=== PATIENT | male | born 1935 | race Caucasian/White ===

== ENCOUNTER 2018-08-28 00:33 | Emergency (ER) | payer MEDICARE ==
[2018-08-28 00:56] VITALS: BP 143/75; PULSE 60; RESP 14; TEMP 98.2
--- NOTE | 2018-08-28 01:17 | ED ---
Male Urogenital HPI - General Chief complaint: Urogenital Stated complaint: Urogenital Time Seen by Provider: 08/28/18 00:59 Source: patient, family Mode of arrival: wheelchair Limitations: no limitations - History of Present Illness Initial comments: 83-year-old female patient presents to the emergency department today for evaluation of leaking catheter bag. Patient states he's had the catheter for a few months due to enlarged prostate. States they have tried to remove in the past but has been unsuccessful. States that throughout the day today he has been having leaking from the bottom of the bag causing his pants to become soaked. Patient denies any pain to the abdomen, fever, chills, nausea, vomiting. Denies any difficulty with the insertion site. Denies any other concerns. - Related Data Allergies Allergy/AdvReac Type Severity Reaction Status Date / Time No Known Allergies Allergy Verified 08/28/18 00:55 Review of Systems ROS Statement: Those systems with pertinent positive or pertinent negative responses have been documented in the HPI. ROS Other: All systems not noted in ROS Statement are negative. Past Medical History Past Medical History: Hyperlipidemia, Hypertension, Prostate Disorder History of Any Multi-Drug Resistant Organisms: None Reported Additional Past Surgical History / Comment(s): prostate/bladder Past Psychological History: No Psychological Hx Reported Smoking Status: Never smoker Past Alcohol Use History: None Reported Past Drug Use History: None Reported General Exam Limitations: no limitations General appearance: alert, in no apparent distress, other (Physical well- developed, well-nourished elderly male patient in no acute distress. Vital signs upon presentation are temperature 98.2F, pulse 60, respirations 14, blood pressure 143/75, pulse ox 98% on room air.) Respiratory exam: Present: normal lung sounds bilaterally. Absent: respiratory distress, wheezes, rales, rhonchi, stridor Cardiovascular Exam: Present: regular rate, normal rhythm, normal heart sounds. Absent: systolic murmur, diastolic murmur, rubs, gallop, clicks GI/Abdominal exam: Present: soft, normal bowel sounds. Absent: distended, tenderness, guarding, rebound, rigid Neurological exam: Present: alert, oriented X3, CN II-XII intact Psychiatric exam: Present: normal affect, normal mood Skin exam: Present: warm, dry, intact, normal color. Absent: rash Course Vital Signs 08/28/18 00:49 Temperature 98.2 F Pulse Rate 60 Respiratory 14 Rate Blood Pressure 143/75 O2 Sat by Pulse 98 Oximetry Medical Decision Making - Medical Decision Making 83-year-old male patient presented to the emergency department today for evaluation of leaking catheter bag. Bag was switched out. Patient denied any constitutional symptoms. This did seem to resolve his problem. He is instructed to follow-up with his primary care physician as needed. Instructed to follow-up with his urologist as planned. Return parameters discussed in detail. He verbalizes understanding and agrees with this plan. Disposition Clinical Impression: Problem with Henderson catheter Disposition: HOME SELF-CARE Condition: Good Instructions (If sedation given, give patient instructions): Henderson Catheter Placement and Care (ED) Additional Instructions: Follow-up with urology for further evaluation as planned. Follow-up through primary care physician as needed. Return to the emergency department for any new, worsening, or concerning symptoms. Is patient prescribed a controlled substance at d/c from ED?: No Referrals: Sean Belle MD [Primary Care Provider] - 1-2 days Time of Disposition: 01:16
== END 2018-08-28 01:29 | disposition home or self-care (01) ==
LOC: EC 00:33
DX: T83.038A Leakage of other urinary catheter, initial encounter (principal); Z87.438 Personal history of other diseases of male genital organs
CPT/HCPCS: 99283

== ENCOUNTER 2018-09-07 09:43 | Inpatient (IN) | payer MEDICARE ==
[2018-09-07] MEDS ORDERED: ASPIRIN 81 MG PO STA (10:20)
[2018-09-07] MEDS ORDERED: NITROGLYCERIN OINT 1 INCH/GM PACKET TOPICAL STA (10:20)
--- NOTE | 2018-09-07 10:24 | ED ---
General Adult HPI - General Chief complaint: Chest Pain Stated complaint: chest pain Time Seen by Provider: 09/07/18 10:00 Source: patient, EMS, RN notes reviewed Mode of arrival: EMS Limitations: no limitations - History of Present Illness Initial comments: Patient is a pleasant 83-year-old male presenting to the emergency department with reported chest discomfort. Patient admits to having a bad memory and is a poor historian. At this time patient is unclear why he called the ambulance to come here. Patient does not recall having chest discomfort. Patient denies any chest discomfort at this time. Patient states he does feel somewhat shaky and chilled. Patient denies any cough or difficulty breathing. No abdominal pain. No dysuria. Patient denies any isolated area of weakness. Patient believes his memory problems are chronic. - Related Data Home Medications Medication Instructions Recorded Confirmed Aspirin [Adult Low Dose Aspirin EC] 81 mg PO DAILY 09/07/18 09/07/18 Atorvastatin [Lipitor] 20 mg PO HS 09/07/18 09/07/18 Calcium Carbonate/Vitamin D3 1 tab PO DAILY 09/07/18 09/07/18 [Caltrate 600 Plus D3 Tablet] Cyanocobalamin (Vitamin B-12) 1,000 mcg PO DAILY 09/07/18 09/07/18 [Vitamin B-12] Donepezil HCl [Aricept] 10 mg PO DAILY 09/07/18 09/07/18 Lisinopril [Prinivil] 5 mg PO DAILY 09/07/18 09/07/18 Memantine HCl [Namenda Xr] 28 mg PO DAILY 09/07/18 09/07/18 Multivit-Min/FA/Lycopen/Lutein 1 tab PO DAILY 09/07/18 09/07/18 [Centrum Silver Tablet] risperiDONE 0.5 mg PO HS 09/07/18 09/07/18 Allergies Allergy/AdvReac Type Severity Reaction Status Date / Time No Known Allergies Allergy Verified 09/07/18 10:54 Review of Systems ROS Statement: Those systems with pertinent positive or pertinent negative responses have been documented in the HPI. ROS Other: All systems not noted in ROS Statement are negative. Constitutional: Reports: chills. Denies: fever Eyes: Denies: eye pain ENT: Denies: ear pain Respiratory: Denies: cough, dyspnea Cardiovascular: Denies: chest pain, palpitations Endocrine: Denies: fatigue Gastrointestinal: Denies: abdominal pain Genitourinary: Denies: dysuria Musculoskeletal: Denies: back pain Skin: Denies: rash Neurological: Reports: as per HPI. Denies: headache Past Medical History Past Medical History: Dementia, Hyperlipidemia, Hypertension, Prostate Disorder History of Any Multi-Drug Resistant Organisms: None Reported Past Surgical History: Heart Catheterization With Stent Additional Past Surgical History / Comment(s): prostate/bladder Past Psychological History: No Psychological Hx Reported Smoking Status: Never smoker Past Alcohol Use History: None Reported Past Drug Use History: None Reported General Exam Limitations: no limitations General appearance: alert, in no apparent distress Head exam: Present: atraumatic, normocephalic Eye exam: Present: normal appearance, PERRL ENT exam: Present: normal oropharynx Neck exam: Present: normal inspection. Absent: tenderness Respiratory exam: Present: normal lung sounds bilaterally Cardiovascular Exam: Present: regular rate, normal rhythm Expanded Peripheral pulses: 2+: Radial (R), Radial (L), Posterior Tibialis (R), Posterior Tibialis (L) GI/Abdominal exam: Present: soft. Absent: tenderness Extremities exam: Present: normal inspection. Absent: pedal edema, calf tendern ess Neurological exam: Present: alert Psychiatric exam: Present: normal affect, normal mood Skin exam: Present: normal color Course Vital Signs 09/07/18 09/07/18 09/07/18 09:44 10:10 10:30 Temperature 98.9 F Pulse Rate 76 72 79 Respiratory 18 20 13 Rate Blood Pressure 145/60 145/78 145/78 O2 Sat by Pulse 98 98 96 Oximetry EKG Findings - EKG Comments: EKG Findings:: Normal sinus rhythm at 75. DC 160. QRS 82. QT 368. QTC 410. Normal axis. Normal QRS. No acute ST change. Medical Decision Making - Medical Decision Making Patient reevaluated and resting comfortably in bed, symptom-free. Patient family updated on results and plan. Case was discussed in detail with Dr. De Santiago, who will admit covering for hospital call. - Lab Data Result diagrams: 09/07/18 10:12 09/07/18 10:12 Lab Results 09/07/18 09/07/18 09/07/18 Range/Units 10:12 10:12 10:12 WBC 15.4 H (3.8-10.6) k/uL RBC 4.02 L (4.30-5.90) m/uL Hgb 12.5 L (13.0-17.5) gm/dL Hct 39.2 (39.0-53.0) % MCV 97.5 (80.0-100.0) fL MCH 31.0 (25.0-35.0) pg MCHC 31.8 (31.0-37.0) g/dL RDW 13.4 (11.5-15.5) % Plt Count 189 (150-450) k/uL Neutrophils % 84 % Lymphocytes % 6 % Monocytes % 8 % Eosinophils % 1 % Basophils % 0 % Neutrophils # 12.9 H (1.3-7.7) k/uL Lymphocytes # 1.0 (1.0-4.8) k/uL Monocytes # 1.2 H (0-1.0) k/uL Eosinophils # 0.2 (0-0.7) k/uL Basophils # 0.0 (0-0.2) k/uL PT 10.2 (9.0-12.0) sec INR 0.9 (<1.2) APTT 18.7 L (22.0-30.0) sec Sodium 142 (137-145) mmol/L Potassium 4.7 (3.5-5.1) mmol/L Chloride 108 H (98-107) mmol/L Carbon Dioxide 28 (22-30) mmol/L Anion Gap 6 mmol/L BUN 27 H (9-20) mg/dL Creatinine 1.24 (0.66-1.25) mg/dL Est GFR (CKD-EPI)AfAm 61 (>60 ml/min/1.73 sqM) Est GFR (CKD-EPI)NonAf 53 (>60 ml/min/1.73 sqM) Glucose 113 H (74-99) mg/dL Calcium 9.3 (8.4-10.2) mg/dL Magnesium 2.0 (1.6-2.3) mg/dL Total Bilirubin 0.6 (0.2-1.3) mg/dL AST 30 (17-59) U/L ALT 33 (21-72) U/L Alkaline Phosphatase 141 H (38-126) U/L Creatine Kinase 102 (55-170) U/L Troponin I (0.000-0.034) ng/mL Total Protein 6.0 L (6.3-8.2) g/dL Albumin 3.4 L (3.5-5.0) g/dL 09/07/18 Range/Units 10:12 WBC (3.8-10.6) k/uL RBC (4.30-5.90) m/uL Hgb (13.0-17.5) gm/dL Hct (39.0-53.0) % MCV (80.0-100.0) fL MCH (25.0-35.0) pg MCHC (31.0-37.0) g/dL RDW (11.5-15.5) % Plt Count (150-450) k/uL Neutrophils % % Lymphocytes % % Monocytes % % Eosinophils % % Basophils % % Neutrophils # (1.3-7.7) k/uL Lymphocytes # (1.0-4.8) k/uL Monocytes # (0-1.0) k/uL Eosinophils # (0-0.7) k/uL Basophils # (0-0.2) k/uL PT (9.0-12.0) sec INR (<1.2) APTT (22.0-30.0) sec Sodium (137-145) mmol/L Potassium (3.5-5.1) mmol/L Chloride (98-107) mmol/L Carbon Dioxide (22-30) mmol/L Anion Gap mmol/L BUN (9-20) mg/dL Creatinine (0.66-1.25) mg/dL Est GFR (CKD-EPI)AfAm (>60 ml/min/1.73 sqM) Est GFR (CKD-EPI)NonAf (>60 ml/min/1.73 sqM) Glucose (74-99) mg/dL Calcium (8.4-10.2) mg/dL Magnesium (1.6-2.3) mg/dL Total Bilirubin (0.2-1.3) mg/dL AST (17-59) U/L ALT (21-72) U/L Alkaline Phosphatase (38-126) U/L Creatine Kinase (55-170) U/L Troponin I <0.012 (0.000-0.034) ng/mL Total Protein (6.3-8.2) g/dL Albumin (3.5-5.0) g/dL - Radiology Data Radiology results: image reviewed (Chest x-ray revealed no acute process) Disposition Clinical Impression: Chest pain Disposition: ADMITTED IP TO THIS HOSP Is patient prescribed a controlled substance at d/c from ED?: No Referrals: Sean Belle MD [Primary Care Provider] - 1-2 days Decision Time: 12:01
[2018-09-07 10:54] LABS: Basophils % (A) 0 %; Eosinophils # (A) 0.2 k/uL (0-0.7); Eosinophils % (A) 1 %; HCT 39.2 % (39.0-53.0); HGB 12.5 gm/dL (13.0-17.5); Lymphocytes % (A) 6 %; MCHC 31.8 g/dL (31.0-37.0); MCV 97.5 fL (80.0-100.0); Mean Platelet Volume 8.4; Monocytes # (A) 1.2 k/uL (0-1.0); Monocytes % (A) 8 %; Neutrophils # (A) 12.9 k/uL (1.3-7.7); Neutrophils % (A) 84 %; Platelet Count 189 k/uL (150-450); RBC 4.02 m/uL (4.30-5.90); RDW 13.4 % (11.5-15.5); WBC 15.4 k/uL (3.8-10.6)
[2018-09-07 11:10] LABS: Albumin 3.4 g/dL (3.5-5.0); Calcium 9.3 mg/dL (8.4-10.2); INR 0.9 (<1.2); Potassium 4.7 mmol/L (3.5-5.1); Prothrombin Time 10.2 sec (9.0-12.0); Total Bilirubin 0.6 mg/dL (0.2-1.3)
[2018-09-07 11:17] LABS: Partial Thromboplastin Time 18.7 sec (22.0-30.0)
--- NOTE | 2018-09-07 11:23 | XR ---
EXAMINATION TYPE: XR chest 2V DATE OF EXAM: 09/07/2018 HISTORY: Chest Pain. REFERENCE: NONE. FINDINGS: Heart size upper limits of normal. The lungs are clear. Pleural spaces are clear. IMPRESSION: BORDERLINE CARDIOMEGALY.
[2018-09-07] MEDS ORDERED: NITROGLYCERIN SL TABS 0.4 MG TAB SUBLINGUAL PRN (12:01)
--- NOTE | 2018-09-07 15:18 | CONS ---
CONSULTATION This is an 83-year-old gentleman with a lot of dementia, memory issues, does not communicate. He lives at home with his . Apparently, he moves around the house very slowly, does not like to use a walker. This morning, while he was trying to help her with breakfast, he said he cannot do it and clutched his chest and therefore she brought him to the hospital by calling 911. The patient is not a reliable historian. He has underlying dementia, takes Aricept and Namenda. He denies any chest pain. He came into the emergency room and said he does not know why he is here and absolutely denied chest discomfort. He is also not having any symptoms. He is comfortable and resting. He has history of hypertension, hyperlipidemia, and remote history of stenting. Details are also not available. He sees a brewery pumper in the [facility] and apparently had a stent in 2007. He does not know which vessel. At the time of my evaluation, patient keeps his eyes closed, does not communicate and tells me he is in no distress. The patient's tells me that he looks more comfortable. He was in distress and clutched his chest and complained of chest pain earlier today. PAST MEDICAL HISTORY: 1. CAD with PCI in 2007. 2. Hypertension. 3. Hyperlipidemia. 4. History of dementia. MEDICATIONS: At home include: 1. Aspirin 81 mg daily. 2. Lipitor 20 mg daily. 3. Vitamin D supplement. 4. Vitamin B supplement. 5. Aricept. 6. Namenda. 7. Prinivil 5 mg at bedtime. ALLERGIES: None. REVIEW OF SYSTEMS: Unremarkable other than above-mentioned facts. PHYSICAL EXAMINATION: Blood pressure is 140/70, pulse rate is 70 per minute and regular. HEENT unremarkable. Fundus was not examined by me. Neck is supple. There is no JVD. I do not hear a carotid bruit. Heart exam is S1, S2 heard normally. No significant rub, murmur or gallop. Lungs reveal bilateral diminished air entry. Abdomen is soft. Lower extremities reveal diminished pulses. Central nervous system assessment was not performed, but patient is able to move all 4 extremities. EKG revealed sinus mechanism without any acute changes. This is a really unremarkable EKG with sinus rhythm. LABORATORY DATA: Revealed that initial levels are normal. Troponin is unremarkable. Patient's white count is elevated at 15.4. D-dimer was not done. Troponin is normal. IMPRESSION: 1. Probable chest pain, unclear unable to verify with patient. 2. History of dementia. 3. History of coronary artery disease with prior stenting. 4. Hyperlipidemia. RECOMMENDATIONS: I am recommending that we obtain an EKG and troponin at 6:00 am. Continue current medications. No aggressive intervention is necessary. His troponins are normal and if patient has no recurrence of chest pain, e may be discharged tomorrow. Discussed with the patient and . Thank you very much for the consult. DEANDRE / JAYLON: [id number] /
[2018-09-07] MEDS: METOPROLOL TARTRATE 12.5 MG TAB PO SCH ×2 (15:36→21:26)
[2018-09-07] MEDS: LISINOPRIL 5 MG TAB PO SCH (15:36)
[2018-09-07] MEDS: DONEPEZIL 10 MG TAB PO SCH (15:36)
[2018-09-07] MEDS: MEMANTINE 10 MG TAB PO SCH ×2 (15:36→21:26)
[2018-09-07 15:42] LABS: Appearance,Urine Cloudy (Clear); Bilirubin,Urine Negative (Negative); Blood,Urine Moderate (Negative); Color,Urine Yellow; Glucose,Urine (UA) Negative (Negative); Ketones,Urine Trace (Negative); Leukocyte Esterase,Urine Large (Negative); Mucus,Urine Rare /hpf; Nitrite,Urine Negative (Negative); PH, Urine 5.5 (5.0-8.0); Protein,Urine 1+ (Negative); RBC,Urine 113 /hpf (0-5); Specific Gravity,Urine 1.016 (1.001-1.035); Urobilinogen,Urine <2.0 mg/dL (<2.0); WBC,Urine >182 /hpf (0-5)
[2018-09-07] MEDS ORDERED: ACETAMINOPHEN TAB 325 MG TAB PO PRN (16:06)
--- NOTE | 2018-09-07 17:16 | P.HPIM ---
History of Present Illness H&P Date: 09/07/18 Chief Complaint: Chest pain 83-year-old male with PMH of dementia, hypertension, hyperlipidemia presents to the ED for chest pain. Patient has advanced dementia and is unable to provide much history. Per ED report, patient's chest pain had resolved by the time he got to the ED. Patient is unable to describe his pain in further detail. is at bedside providing majority of the history. reports that the patient was attempting to pour milk this morning when he indicated that he had chest pain. noticed that patient was clenching his chest with his hands. also noticed that the patient appeared weak and was going to collapse to the floor but she was able to catch the patient and allow him to sit down in a chair. Of note, reports that the patient had been rubbing his chest over the last 2-3 weeks. Patient denies any headache, lower extremity edema, nausea, vomiting, cough, chest pain, shortness of breath, changes in urination or bowel habits. Per ED report, patient noted feeling shaky and chills. In the ED, vital signs were stable. CBC showed a leukocytosis of 15.4. CBC showed a hemoglobin of 12.5. Coagulation panel was negative. CMP showed a chloride of 108, BUN of 27 and glucose of 113. Alkaline phosphatase was 141. Troponin was less than 0.012, with EKG showing normal sinus rhythm. Urinalysis showed large leukocyte esterase. Influenza was negative. Chest x-ray shows cardiomegaly. When he hit the observation unit, patient spiked a fever of 101.8 Fahrenheit. Patient is admitted for chest pain, rule out acute coronary syndrome, cardiology is consulted. Patient was incidentally found to have a UTI as well. Review of Systems Pertinent positives and negatives as discussed in HPI, a complete review of systems was performed and all other systems are negative. Past Medical History Past Medical History: Dementia, Hyperlipidemia, Hypertension, Prostate Disorder History of Any Multi-Drug Resistant Organisms: None Reported Past Surgical History: Heart Catheterization With Stent Additional Past Surgical History / Comment(s): prostate/bladder Date of Last Stent Placement:: 06/2007 Past Psychological History: No Psychological Hx Reported Smoking Status: Never smoker Past Alcohol Use History: None Reported Past Drug Use History: None Reported Medications and Allergies Home Medications Medication Instructions Recorded Confirmed Type Aspirin [Adult Low Dose Aspirin EC] 81 mg PO DAILY 09/07/18 09/07/18 History Atorvastatin [Lipitor] 20 mg PO HS 09/07/18 09/07/18 History Calcium Carbonate/Vitamin D3 1 tab PO DAILY 09/07/18 09/07/18 History [Caltrate 600 Plus D3 Tablet] Cyanocobalamin (Vitamin B-12) 1,000 mcg PO DAILY 09/07/18 09/07/18 History [Vitamin B-12] Donepezil HCl [Aricept] 10 mg PO DAILY 09/07/18 09/07/18 History Lisinopril [Prinivil] 5 mg PO DAILY 09/07/18 09/07/18 History Memantine HCl [Namenda Xr] 28 mg PO DAILY 09/07/18 09/07/18 History Multivit-Min/FA/Lycopen/Lutein 1 tab PO DAILY 09/07/18 09/07/18 History [Centrum Silver Tablet] risperiDONE 0.5 mg PO HS 09/07/18 09/07/18 History Allergies Allergy/AdvReac Type Severity Reaction Status Date / Time No Known Allergies Allergy Verified 09/07/18 10:54 Physical Exam Vitals: Vital Signs Temp Pulse Pulse Resp BP BP BP 09/07/18 16:00 88 18 09/07/18 15:45 101.8 F H 88 18 152/73 09/07/18 12:49 98.5 F 88 18 172/68 09/07/18 12:00 80 20 151/72 09/07/18 11:30 73 15 153/73 09/07/18 10:30 79 13 145/78 09/07/18 10:10 72 20 145/78 09/07/18 09:44 98.9 F 76 18 145/60 Pulse Ox 09/07/18 16:00 09/07/18 15:45 94 L 09/07/18 12:49 96 09/07/18 12:00 97 09/07/18 11:30 97 09/07/18 10:30 96 09/07/18 10:10 98 09/07/18 09:44 98 Intake and Output 09/07/18 09/07/18 09/07/18 06:59 14:59 22:59 Intake Total 240 Balance 240 Intake: Oral 240 Other: Voiding Method Indwelling Catheter Indwelling Catheter Weight 81.647 kg General: [non toxic], [no distress], [appears at stated age] Derm: [warm], [dry] Head: [atraumatic], [normocephalic], [symmetric] Eyes: [EOMI], [no lid lag], [anicteric sclera] Mouth: [no lip lesion], [mucus membranes moist] Cardiovascular: [S1S2 reg], [no murmur], [positive DP pulse bilateral], Lungs: [CTA bilateral], [no rhonchi, no rales] , [no accessory muscle use] Abdominal: [soft], [ nontender to palpation], [no guarding], [no appreciable organomegaly] Ext: [no gross muscle atrophy], [no edema], [no contractures] Neuro: [no focal neuro deficits] Psych: [Alert], [oriented], [appropriate affect] Results CBC & Chem 7: 09/07/18 10:12 09/07/18 10:12 Labs: Abnormal Lab Results - Last 24 Hours (Table) 09/07/18 09/07/18 09/07/18 Range/Units 10:12 10:12 10:12 WBC 15.4 H (3.8-10.6) k/uL RBC 4.02 L (4.30-5.90) m/uL Hgb 12.5 L (13.0-17.5) gm/dL Neutrophils # 12.9 H (1.3-7.7) k/uL Monocytes # 1.2 H (0-1.0) k/uL APTT 18.7 L (22.0-30.0) sec Chloride 108 H (98-107) mmol/L BUN 27 H (9-20) mg/dL Glucose 113 H (74-99) mg/dL Alkaline Phosphatase 141 H (38-126) U/L Total Protein 6.0 L (6.3-8.2) g/dL Albumin 3.4 L (3.5-5.0) g/dL Urine Protein (Negative) Urine Ketones (Negative) Urine Blood (Negative) Ur Leukocyte Esterase (Negative) Urine RBC (0-5) /hpf Urine WBC (0-5) /hpf Urine WBC Clumps (None) /hpf Urine Mucus (None) /hpf 09/07/18 Range/Units 14:28 WBC (3.8-10.6) k/uL RBC (4.30-5.90) m/uL Hgb (13.0-17.5) gm/dL Neutrophils # (1.3-7.7) k/uL Monocytes # (0-1.0) k/uL APTT (22.0-30.0) sec Chloride (98-107) mmol/L BUN (9-20) mg/dL Glucose (74-99) mg/dL Alkaline Phosphatase (38-126) U/L Total Protein (6.3-8.2) g/dL Albumin (3.5-5.0) g/dL Urine Protein 1+ H (Negative) Urine Ketones Trace H (Negative) Urine Blood Moderate H (Negative) Ur Leukocyte Esterase Large H (Negative) Urine RBC 113 H (0-5) /hpf Urine WBC >182 H (0-5) /hpf Urine WBC Clumps Rare H (None) /hpf Urine Mucus Rare H (None) /hpf Thrombosis Risk Factor Assmnt - Choose All That Apply Any of the Below Risk Factors Present?: No Other Risk Factors: Yes Each Risk Factor Represents 3 Points: Age 75 years or older Thrombosis Risk Factor Assessment Total Risk Factor Score: 3 Thrombosis Risk Factor Assessment Level: Moderate Risk Assessment and Plan Assessment: Assessment and Plan Fever and leukocytosis likely secondary to UTI Chest pain, rule out acute coronary syndrome Elevated BUN Dementia Hypertension Hyperlipidemia Patient with fever of 101.8 Fahrenheit. Leukocytosis of 15.4. Chest x-ray is negative for pneumonia. Urinalysis shows large leukocyte esterase. Influenza is negative. Plans: Start Rocephin IV for treatment of UTI. Tylenol as needed for fever. Follow blood cultures. Follow urine culture. Troponin less than 0.0122 with EKG showing normal sinus rhythm. Plans: Trend Trop/EKG to rule out ACS. Continue aspirin. Tylenol or Nitrostat as needed for chest pain. Continue beta sharla. Telemetry monitoring. Follow cardiology consultation. BUN 27, creatinine within normal limits. Likely secondary to dehydration. Plans: Avoid nephrotoxins. Start normal saline at 50 mL per hour. Daily BMP. Plans: Continue memantine, risperidone and donepezil. Frequent redirection. Avoid restraints. Window side bed if possible. BP 152/73. Plans: Continue beta sharla. Continue MARISSA inhibitor. Monitor vitals, adjust medications as necessary. Plans: Continue Lipitor. Patient admitted for chest pain, rule out ACS, cardiology consulted. Found to have UTI with fever, started on IV antibiotics. Patient is pending clinical improvement. would like the patient to be full code at this time. , Roc is the decision maker. DVT prophylaxis: [Heparin] Discussed with: [Patient and ] Anticipated discharge: [1-2 days] Anticipated discharge place: [Home] A total of [30] minutes was spent on the care of this complex patient more than 50% of the time was spent in counseling and care coordination.
[2018-09-07] MEDS: SODIUM CHLORIDE 0.9% 1,000 ML IV SCH (17:51)
[2018-09-07] MEDS: NITROGLYCERIN OINT 1 INCH/GM PACKET TOPICAL SCH ×2 (18:46→23:37)
[2018-09-07] MEDS: ATORVASTATIN 20 MG TAB PO SCH (21:26)
[2018-09-07] MEDS: risperiDONE 0.5 MG TAB PO SCH (21:26)
[2018-09-07] MEDS: HEPARIN SODIUM,PORCINE 5,000 UNIT/ML 1 ML VIAL SQ SCH (21:26)
[2018-09-08 03:57] LABS: Cholesterol 96 mg/dL (<200); HDL Cholesterol 43 mg/dL (40-60); LDL Cholesterol,Calculated 45 mg/dL (0-99); Triglycerides 41 mg/dL (<150)
[2018-09-08] MEDS: NITROGLYCERIN OINT 1 INCH/GM PACKET TOPICAL SCH ×2 (06:46→12:26)
[2018-09-08] MEDS ORDERED: ASPIRIN 325 MG TAB PO SCH (09:00)
[2018-09-08] MEDS: HEPARIN SODIUM,PORCINE 5,000 UNIT/ML 1 ML VIAL SQ SCH ×2 (09:07→20:02)
[2018-09-08] MEDS: DONEPEZIL 10 MG TAB PO SCH (09:07)
[2018-09-08] MEDS: ASPIRIN 81 MG PO SCH (09:07)
[2018-09-08] MEDS: METOPROLOL TARTRATE 12.5 MG TAB PO SCH ×2 (09:07→20:02)
[2018-09-08] MEDS: LISINOPRIL 5 MG TAB PO SCH (09:07)
[2018-09-08] MEDS: MEMANTINE 10 MG TAB PO SCH ×2 (09:07→20:02)
--- NOTE | 2018-09-08 12:27 | P.PN ---
Subjective This is a pleasant 83-year-old male past medical history significant for dementia, coronary artery disease, hypertension and dyslipidemia. He is seen and examined resting comfortably in bed in no acute distress. Per the nursing staff there is no complaints of chest discomfort. An acute coronary event has been ruled out. Laboratory data reviewed. Blood pressure 101/62 her a 56 afebrile maintaining oxygen saturation on room air. Currently maintained on aspirin 81 mg daily, atorvastatin 20 mg daily, lisinopril 5 mg daily and Lopr essor 12.5 mg twice a day. GENERAL: Well-appearing, well-nourished and in no acute distress. NECK: Supple without JVD or thyromegaly. LUNGS: Breath sounds clear to auscultation bilaterally. Respiration equal and unlabored. No wheezes, rales or rhonchi. HEART: Regular rate and rhythm without murmurs, rubs or gallops. S1 and S2 heard. EXTREMITIES: Normal range of motion, no edema. No clubbing or cyanosis. Peripheral pulses intact. ASSESSMENT Chest pain, an acute coronary event has been ruled out. No chest pain has been verbalize coming to the hospital. History of coronary artery disease status post stent placement 2007 Dyslipidemia Hypertension Dementia PLAN Stable from a cardiac perspective. Continue current medical regimen. Nurse Practitioner note has been reviewed, I agree with a documented findings and plan of care. Patient was seen and examined. Objective - Vital Signs Vital signs: Vital Signs Temp 98.3 F 09/08/18 12:00 Pulse 56 L 09/08/18 12:00 Resp 18 09/08/18 12:00 BP 101/62 09/08/18 12:00 Pulse Ox 93 L 09/08/18 12:00 Intake & Output 09/07/18 09/08/18 09/08/18 18:59 06:59 18:59 Intake Total 480 Output Total 425 700 Balance 55 -700 Weight 81.647 kg Intake: Oral 480 Output: Urine 425 700 Other: Voiding Method Indwelling Catheter Indwelling Catheter Indwelling Catheter - Labs CBC & Chem 7: 09/07/18 10:12 09/07/18 10:12 Labs: Abnormal Lab Results - Last 24 Hours (Table) 09/07/18 Range/Units 14:28 Urine Protein 1+ H (Negative) Urine Ketones Trace H (Negative) Urine Blood Moderate H (Negative) Ur Leukocyte Esterase Large H (Negative) Urine RBC 113 H (0-5) /hpf Urine WBC >182 H (0-5) /hpf Urine WBC Clumps Rare H (None) /hpf Urine Mucus Rare H (None) /hpf Microbiology - Last 24 Hours (Table) 09/07/18 14:28 Urine Culture - Preliminary Urine,Catheterized
[2018-09-08 14:30] LABS: Potassium 4.3 mmol/L (3.5-5.1)
[2018-09-08 14:31] LABS: Basophils % (A) 0 %; Eosinophils # (A) 0.2 k/uL (0-0.7); Eosinophils % (A) 2 %; HCT 31.7 % (39.0-53.0); HGB 10.5 gm/dL (13.0-17.5); Lymphocytes # (A) 0.7 k/uL (1.0-4.8); Lymphocytes % (A) 7 %; MCHC 33.1 g/dL (31.0-37.0); MCV 96.5 fL (80.0-100.0); Mean Platelet Volume 9.1; Monocytes # (A) 0.8 k/uL (0-1.0); Monocytes % (A) 7 %; Neutrophils # (A) 8.8 k/uL (1.3-7.7); Neutrophils % (A) 83 %; Platelet Count 140 k/uL (150-450); RBC 3.29 m/uL (4.30-5.90); RDW 13.9 % (11.5-15.5); WBC 10.6 k/uL (3.8-10.6)
--- NOTE | 2018-09-08 14:54 | P.PN ---
Subjective Progress Note Date: 09/08/18 Principal diagnosis: UTI Patient was seen and examined. No acute events overnight. Patient denies any chest pain, shortness of breath or palpitations. He has no symptoms. reports that the patient has been increasingly fatigued over this time and she is concerned about her ability to take care of him at this time. Objective - Vital Signs Vital signs: Vital Signs Temp 98.3 F 09/08/18 12:00 Pulse 56 L 09/08/18 12:00 Resp 18 09/08/18 12:00 BP 101/62 09/08/18 12:00 Pulse Ox 93 L 09/08/18 12:00 Intake & Output 09/07/18 09/08/18 09/08/18 18:59 06:59 18:59 Intake Total 480 Output Total 425 700 Balance 55 -700 Weight 81.647 kg Intake: Oral 480 Output: Urine 425 700 Other: Voiding Method Indwelling Catheter Indwelling Catheter Indwelling Catheter - Exam General: [non toxic], [no distress], [appears at stated age] Derm: [warm], [dry] Head: [atraumatic], [normocephalic], [symmetric] Eyes: [EOMI], [no lid lag], [anicteric sclera] Mouth: [no lip lesion], [mucus membranes moist] Cardiovascular: [S1S2 reg], [no murmur], [positive DP pulse bilateral], Lungs: [CTA bilateral], [no rhonchi, no rales] , [no accessory muscle use] Abdominal: [soft], [ nontender to palpation], [no guarding], [no appreciable organomegaly] Ext: [no gross muscle atrophy], [no edema], [no contractures] Neuro: [no focal neuro deficits] Psych: [Alert], [oriented], [appropriate affect] - Labs CBC & Chem 7: 09/08/18 13:54 09/08/18 13:54 Labs: Abnormal Lab Results - Last 24 Hours (Table) 09/07/18 09/08/18 09/08/18 Range/Units 14:28 13:54 13:54 RBC 3.29 L (4.30-5.90) m/uL Hgb 10.5 L (13.0-17.5) gm/dL Hct 31.7 L (39.0-53.0) % Plt Count 140 L (150-450) k/uL Neutrophils # 8.8 H (1.3-7.7) k/uL Lymphocytes # 0.7 L (1.0-4.8) k/uL Chloride 109 H (98-107) mmol/L BUN 23 H (9-20) mg/dL Glucose 112 H (74-99) mg/dL Calcium 8.0 L (8.4-10.2) mg/dL Urine Protein 1+ H (Negative) Urine Ketones Trace H (Negative) Urine Blood Moderate H (Negative) Ur Leukocyte Esterase Large H (Negative) Urine RBC 113 H (0-5) /hpf Urine WBC >182 H (0-5) /hpf Urine WBC Clumps Rare H (None) /hpf Urine Mucus Rare H (None) /hpf Microbiology - Last 24 Hours (Table) 09/07/18 14:28 Urine Culture - Preliminary Urine,Catheterized Assessment and Plan Assessment: Assessment and Plan Fever and leukocytosis likely secondary to UTI Chest pain, rule out acute coronary syndrome Elevated BUN Dementia Hypertension Hyperlipidemia Patient with fever of 101.8 Fahrenheit, afebrile since this morning. Leukocytosis of 15.4, improved now within normal limits. Chest x-ray is negative for pneumonia. Urinalysis shows large leukocyte esterase. Influenza is negative. Plans: Start Rocephin IV for treatment of UTI. Tylenol as needed for fever. Follow blood cultures. Follow urine culture. Troponin less than 0.0122, 0.025 with EKG showing normal sinus rhythm. Plans: ACS ruled out. Continue aspirin. Tylenol or Nitrostat as needed for chest pain. Continue beta sharla. Telemetry monitoring. Cardiology recommends no further workup. Follow echocardiogram. BUN 27-23, creatinine within normal limits. Likely secondary to dehydration. Plans: Avoid nephrotoxins. Start normal saline at 50 mL per hour. Daily BMP. Plans: Continue memantine, risperidone and donepezil. Frequent redirection. Avoid restraints. Window side bed if possible. BP 101/62. Plans: Continue beta sharla. Continue MARISSA inhibitor. Monitor vitals, adjust medications as necessary. Plans: Continue Lipitor. Patient admitted for chest pain, rule out ACS, cardiology cleared. Found to have UTI with fever, started on IV antibiotics, cultures pending. Follow echocardiogram tomorrow morning. Follow PT consult tomorrow morning. Likely DC tomorrow.
[2018-09-08] MEDS: SODIUM CHLORIDE 0.9% 1,000 ML IV SCH (19:54)
[2018-09-08] MEDS: ATORVASTATIN 20 MG TAB PO SCH (20:02)
[2018-09-08] MEDS: risperiDONE 0.5 MG TAB PO SCH (20:02)
[2018-09-09 07:10] LABS: Glucose,Whole Blood 101 mg/dL (75-99)
--- NOTE | 2018-09-09 10:27 | ECHOF ---
Referral Reason:Ches tpain MEASUREMENTS -------- HEIGHT: 167.6 cm WEIGHT: 81.6 kg BP: 154/75 IVSd: 0.9 cm (0.6 - 1.1) LVIDd: 3.7 cm (3.9 - 5.3) LVPWd: 1.5 cm (0.6 - 1.1) IVSs: 1.4 cm LVIDs: 2.3 cm LVPWs: 1.9 cm Ao Diam: 2.9 cm (2.0 - 3.7) AV Cusp: 1.8 cm (1.5 - 2.6) LA Diam: 2.9 cm (2.7 - 3.8) MV EXCURSION: 15.965 mm (> 18.000) MV EF SLOPE: 66 mm/s (70 - 150) EPSS: 1.8 cm MV E Percy: 0.98 m/s MV DecT: 183 ms MV A Percy: 0.82 m/s MV E/A Ratio: 1.19 AR PHT: 311 ms RAP: 5.00 mmHg RVSP: 10.17 mmHg FINDINGS -------- Sinus rhythm. This was a technically adequate study. The left ventricular size is normal. There is mild concentric left ventricular hypertrophy. Overa ll left ventricular systolic function is normal with, an EF between 55 - 60 %. The RV was not well visualized. The left atrial size is normal. The right atrium was not well visualized. The aortic valve was not well visualized. There is mild aortic regurgitation. The mitral valve was not well visualized. There is trace mitral regurgitation. Trace tricuspid regurgitation present. Right ventricular systolic pressure is normal at < 35 mmHg. The pulmonic valve was not well visualized. There is no pulmonic regurgitation present. The aortic root size is normal. IVC Not well visulized. There is no pericardial effusion. CONCLUSIONS -------- 1. Sinus rhythm. 2. This was a technically adequate study. 3. The left ventricular size is normal. 4. There is mild concentric left ventricular hypertrophy. 5. Overall left ventricular systolic function is normal with, an EF between 55 - 60 %. 6. The RV was not well visualized. 7. The left atrial size is normal. 8. The right atrium was not well visualized. 9. The aortic valve was not well visualized. 10. There is mild aortic regurgitation. 11. There is trace mitral regurgitation. 12. Trace tricuspid regurgitation present. 13. Right ventricular systolic pressure is normal at < 35 mmHg. 14. The pulmonic valve was not well visualized. 15. There is no pulmonic regurgitation present. 16. The aortic root size is normal. 17. IVC Not well visulized. 18. There is no pericardial effusion. MANAGER ENDOSCOPY: Nicole Rivera RDCS
[2018-09-09] MEDS: LISINOPRIL 5 MG TAB PO SCH (11:05)
[2018-09-09] MEDS: MEMANTINE 10 MG TAB PO SCH ×2 (11:05→21:43)
[2018-09-09] MEDS: METOPROLOL TARTRATE 12.5 MG TAB PO SCH ×2 (11:05→21:43)
[2018-09-09] MEDS: HEPARIN SODIUM,PORCINE 5,000 UNIT/ML 1 ML VIAL SQ SCH ×2 (11:05→21:43)
[2018-09-09] MEDS: SODIUM CHLORIDE 0.9% 1,000 ML IV SCH (11:05)
[2018-09-09] MEDS: ASPIRIN 81 MG PO SCH (11:05)
[2018-09-09] MEDS: DONEPEZIL 10 MG TAB PO SCH (11:06)
--- NOTE | 2018-09-09 16:04 | P.PN ---
Subjective Progress Note Date: 09/09/18 Principal diagnosis: UTI Patient was seen and examined. No acute events overnight. believes that the patient has improved somewhat. Patient currently denies any complaints. He denies any chest pain, shortness of breath or palpitations. No nausea or vomiting. No fever or chills. No dysuria. Objective - Vital Signs Vital signs: Vital Signs Temp 98.2 F 09/09/18 12:00 Pulse 60 09/09/18 12:00 Resp 17 09/09/18 12:00 BP 128/66 09/09/18 12:00 Pulse Ox 94 L 09/09/18 12:00 Intake & Output 09/08/18 09/09/18 09/09/18 18:59 06:59 18:59 Output Total 600 1200 525 Balance -600 -1200 -525 Output: Urine 600 1200 525 Other: Voiding Method Indwelling Catheter Indwelling Catheter Indwelling Catheter # Voids 1 - Exam General: [non toxic], [no distress], [appears at stated age] Derm: [warm], [dry] Head: [atraumatic], [normocephalic], [symmetric] Eyes: [EOMI], [no lid lag], [anicteric sclera] Mouth: [no lip lesion], [mucus membranes moist] Cardiovascular: [S1S2 reg], [no murmur], [positive DP pulse bilateral], Lungs: [CTA bilateral], [no rhonchi, no rales] , [no accessory muscle use] Abdominal: [soft], [ nontender to palpation], [no guarding], [no appreciable organomegaly] Ext: [no gross muscle atrophy], [no edema], [no contractures] Neuro: [no focal neuro deficits] Psych: [Alert], [oriented], [appropriate affect] - Labs CBC & Chem 7: 09/08/18 13:54 09/08/18 13:54 Labs: Abnormal Lab Results - Last 24 Hours (Table) 09/09/18 Range/Units 07:08 POC Glucose (mg/dL) 101 H (75-99) mg/dL Microbiology - Last 24 Hours (Table) 09/07/18 14:28 Urine Culture - Preliminary Urine,Catheterized Gram Neg Bacilli Group D Enterococcus 09/07/18 14:27 Blood Culture - Preliminary Blood No Growth after 24 hours Assessment and Plan Assessment: Assessment and Plan Fever and leukocytosis likely secondary to UTI Chest pain, rule out acute coronary syndrome Elevated BUN Dementia Hypertension Hyperlipidemia Patient with fever of 101.8 Fahrenheit, afebrile since this morning. Leukocytosis of 15.4, improved now within normal limits. Chest x-ray is negative for pneumonia. Blood culture negative at 24 hours. Urine culture positive for gram-negative bacilli and group D enterococcus. Urinalysis shows large leukocyte esterase. Influenza is negative. Plans: Start Rocephin IV for treatment of UTI. Tylenol as needed for fever. Follow blood cultures. Follow urine culture. Troponin less than 0.0122, 0.025 with EKG showing normal sinus rhythm. Echocardiogram shows EF 55-60%. Plans: ACS ruled out. Continue aspirin. Tylenol or Nitrostat as needed for chest pain. Continue beta sharla. Telemetry monitoring. Cardiology recommends no further workup. BUN 27-23, creatinine within normal limits. Likely secondary to dehydration. Plans: Avoid nephrotoxins. Start normal saline at 50 mL per hour. Daily BMP. Plans: Continue memantine, risperidone and donepezil. Frequent redirection. Avoid restraints. Window side bed if possible. BP 128/66. Plans: Continue beta sharla. Continue MARISSA inhibitor. Monitor vitals, adjust medications as necessary. Plans: Continue Lipitor. Patient admitted for chest pain, rule out ACS, cardiology cleared. Found to have UTI with fever, started on IV antibiotics, cultures pending. PT consulted, plans for rehab at home. We are still waiting on urine cultures. Plans for DC tomorrow.
[2018-09-09] MEDS: ATORVASTATIN 20 MG TAB PO SCH (21:43)
[2018-09-09] MEDS: risperiDONE 0.5 MG TAB PO SCH (21:44)
[2018-09-10] MEDS: CIPROFLOXACIN HCL 500 MG TAB PO SCH ×2 (06:05→21:14)
[2018-09-10] MEDS: SODIUM CHLORIDE 0.9% 1,000 ML IV SCH ×2 (06:05→21:15)
[2018-09-10] MEDS: HEPARIN SODIUM,PORCINE 5,000 UNIT/ML 1 ML VIAL SQ SCH ×2 (08:23→21:15)
[2018-09-10] MEDS: ASPIRIN 81 MG PO SCH (08:23)
[2018-09-10] MEDS: DONEPEZIL 10 MG TAB PO SCH (08:23)
[2018-09-10] MEDS: METOPROLOL TARTRATE 12.5 MG TAB PO SCH ×2 (08:23→21:14)
[2018-09-10] MEDS: MEMANTINE 10 MG TAB PO SCH ×2 (08:23→21:28)
[2018-09-10] MEDS: LISINOPRIL 5 MG TAB PO SCH (08:23)
[2018-09-10 13:37] LABS: HCT 37.9 % (39.0-53.0); HGB 12.4 gm/dL (13.0-17.5); MCH 31.6 pg (25.0-35.0); MCHC 32.7 g/dL (31.0-37.0); MCV 96.8 fL (80.0-100.0); Mean Platelet Volume 7.8; Platelet Count 178 k/uL (150-450); RBC 3.92 m/uL (4.30-5.90); RDW 13.5 % (11.5-15.5); WBC 6.9 k/uL (3.8-10.6)
[2018-09-10 13:51] LABS: Calcium 8.3 mg/dL (8.4-10.2); Potassium 4.1 mmol/L (3.5-5.1)
--- NOTE | 2018-09-10 15:43 | P.PN ---
Subjective Progress Note Date: 09/10/18 Principal diagnosis: UTI Patient was seen and examined. No acute events overnight. Patient reports no complaints. He appears extremely fatigued and is sleeping during most of the interview. Discussed with , states that she is unable to take care of the patient at this time given his current status and would probably benefit from inpatient rehab. He is being inpatient status for 1 day. Objective - Vital Signs Vital signs: Vital Signs Temp 97.2 F L 09/10/18 12:00 Pulse 54 L 09/10/18 12:00 Resp 18 09/10/18 12:00 BP 165/74 09/10/18 12:00 Pulse Ox 95 09/10/18 12:00 Intake & Output 09/09/18 09/10/18 09/10/18 18:59 06:59 18:59 Intake Total 240 600 236 Output Total 617 782 3926 Balance - Intake: Intake, IV Titration 420 Amount Sodium Chloride 0.9% 1, 420 000 ml @ 50 mls/hr IV . [facility] Rx#:[id number] Oral 240 180 236 Output: Urine 680 648 0608 Other: Voiding Method Indwelling Catheter Indwelling Catheter Indwelling Catheter - Exam General: [non toxic], [no distress], [appears at stated age] Derm: [warm], [dry] Head: [atraumatic], [normocephalic], [symmetric] Eyes: [EOMI], [no lid lag], [anicteric sclera] Mouth: [no lip lesion], [mucus membranes moist] Cardiovascular: [S1S2 reg], [no murmur], [positive DP pulse bilateral], Lungs: [CTA bilateral], [no rhonchi, no rales] , [no accessory muscle use] Abdominal: [soft], [ nontender to palpation], [no guarding], [no appreciable organomegaly] Ext: [no gross muscle atrophy], [no edema], [no contractures] Neuro: [no focal neuro deficits] Psych: [Alert], [oriented], [appropriate affect] - Labs CBC & Chem 7: 09/10/18 13:15 09/10/18 13:15 Labs: Abnormal Lab Results - Last 24 Hours (Table) 09/10/18 09/10/18 Range/Units 13:15 13:15 RBC 3.92 L (4.30-5.90) m/uL Hgb 12.4 L (13.0-17.5) gm/dL Hct 37.9 L (39.0-53.0) % Glucose 152 H (74-99) mg/dL Calcium 8.3 L (8.4-10.2) mg/dL Microbiology - Last 24 Hours (Table) 09/07/18 14:28 Urine Culture - Final Urine,Catheterized Pseudomonas aeruginosa Enterococcus faecalis 09/07/18 14:27 Blood Culture - Preliminary Blood No Growth after 48 hours Assessment and Plan Assessment: Assessment and Plan Fever and leukocytosis likely secondary to UTI Chest pain, rule out acute coronary syndrome Elevated BUN Dementia Hypertension Hyperlipidemia Patient with fever of 101.8 Fahrenheit, afebrile now. Leukocytosis of 15.4, imp roved now within normal limits. Chest x-ray is negative for pneumonia. Blood culture negative at 48 hours. Urine culture positive for Pseudomonas and enterococcus. Urinalysis shows large leukocyte esterase. Influenza is negative. Plans: change Rocephin to ciprofloxacin. Tylenol as needed for fever. Follow blood cultures. Troponin less than 0.0122, 0.025 with EKG showing normal sinus rhythm. Echocardiogram shows EF 55-60%. Plans: ACS ruled out. Continue aspirin. Tylenol or Nitrostat as needed for chest pain. Continue beta sharla. Telemetry monitoring. Cardiology recommends no further workup. BUN 27-23, creatinine within normal limits. Likely secondary to dehydration. Plans: Avoid nephrotoxins. Start normal saline at 50 mL per hour. Daily BMP. Plans: Continue memantine, risperidone and donepezil. Frequent redirection. Avoid restraints. Window side bed if possible. BP 165/74. Plans: Continue beta sharla. Continue MARISSA inhibitor. Monitor vitals, adjust medications as necessary. Plans: Continue Lipitor. Patient admitted for chest pain, rule out ACS, cardiology cleared. Found to have UTI with fever, started on IV antibiotics, cultures pending. PT consulted, plans for rehab at home. patient's states that she is unable to take care of the patient. Now, plans for inpatient rehab. We will consult social work. He has been inpatient status for 1 day, needs 3 inpatient days to qualify for rehab.
[2018-09-10] MEDS: ATORVASTATIN 20 MG TAB PO SCH (21:14)
[2018-09-10] MEDS: risperiDONE 0.5 MG TAB PO SCH (21:28)
[2018-09-11] MEDS: METOPROLOL TARTRATE 12.5 MG TAB PO SCH ×2 (08:33→20:03)
[2018-09-11] MEDS: ASPIRIN 81 MG PO SCH (08:33)
[2018-09-11] MEDS: LISINOPRIL 5 MG TAB PO SCH (08:33)
[2018-09-11] MEDS: HEPARIN SODIUM,PORCINE 5,000 UNIT/ML 1 ML VIAL SQ SCH ×2 (08:33→20:02)
[2018-09-11] MEDS: DONEPEZIL 10 MG TAB PO SCH (08:34)
[2018-09-11] MEDS: CIPROFLOXACIN HCL 500 MG TAB PO SCH ×2 (08:34→20:02)
[2018-09-11] MEDS: MEMANTINE 10 MG TAB PO SCH ×2 (08:34→20:03)
--- NOTE | 2018-09-11 16:15 | P.PN ---
Subjective Progress Note Date: 09/11/18 Principal diagnosis: UTI Patient was seen and examined. No acute events overnight. Patient is more awake this afternoon. He denies any complaints. He denies any chest pain, sh ortness of breath or palpitations. No nausea or vomiting. No fever or chills. said bedside. Objective - Vital Signs Vital signs: Vital Signs Temp 98.1 F 09/11/18 15:25 Pulse 60 09/11/18 15:25 Resp 16 09/11/18 15:25 BP 148/84 09/11/18 15:25 Pulse Ox 97 09/11/18 15:25 Intake & Output 09/10/18 09/11/18 09/11/18 18:59 06:59 18:59 Intake Total 236 320 Output Total 1750 700 675 Balance -9887 -700 -378 Intake: Oral 236 120 Other 200 Output: Urine 1750 700 675 Other: Voiding Method Indwelling Catheter Indwelling Catheter Indwelling Catheter # Voids 1 - Exam General: [non toxic], [no distress], [appears at stated age] Derm: [warm], [dry] Head: [atraumatic], [normocephalic], [symmetric] Eyes: [EOMI], [no lid lag], [anicteric sclera] Mouth: [no lip lesion], [mucus membranes moist] Cardiovascular: [S1S2 reg], [no murmur], [positive DP pulse bilateral], Lungs: [CTA bilateral], [no rhonchi, no rales] , [no accessory muscle use] Abdominal: [soft], [ nontender to palpation], [no guarding], [no appreciable organomegaly] Ext: [no gross muscle atrophy], [no edema], [no contractures] Neuro: [no focal neuro deficits] Psych: [Alert], [oriented], [appropriate affect] - Labs CBC & Chem 7: 09/10/18 13:15 09/10/18 13:15 Labs: Microbiology - Last 24 Hours (Table) 09/07/18 14:27 Blood Culture - Preliminary Blood No Growth after 72 hours Assessment and Plan Assessment: Assessment and Plan Fever and leukocytosis likely secondary to UTI Chest pain, rule out acute coronary syndrome Elevated BUN Dementia Hypertension Hyperlipidemia Patient with fever of 101.8 Fahrenheit, afebrile now. Leukocytosis of 15.4, improved now within normal limits. Chest x-ray is negative for pneumonia. Blood culture negative at 72 hours. Urine culture positive for Pseudomonas and enterococcus. Urinalysis shows large leukocyte esterase. Influenza is negative. Plans: Change Rocephin to ciprofloxacin. Tylenol as needed for fever. Follow blood cultures. Troponin less than 0.0122, 0.025 with EKG showing normal sinus rhythm. Echocardiogram shows EF 55-60%. Plans: ACS ruled out. Continue aspirin. Tylenol or Nitrostat as needed for chest pain. Continue beta sharla. Telemetry monitoring. Cardiology recommends no further workup. BUN 75-27-ltxlms normal limits, creatinine within normal limits. Likely secondary to dehydration. Plans: Avoid nephrotoxins. Start normal saline at 50 mL per hour. Daily BMP. Plans: Continue memantine, risperidone and donepezil. Frequent redirection. Avoid restraints. Window side bed if possible. BP 148/84. Plans: Continue beta sharla. Continue MARISSA inhibitor. Monitor vitals, adjust medications as necessary. Plans: Continue Lipitor. Patient's states that she is unable to take care of the patient. Now, plans for inpatient rehab. We will consult social work. He has been inpatient status for 2 day, needs 3 inpatient days to qualify for rehab.
[2018-09-11] MEDS: ATORVASTATIN 20 MG TAB PO SCH (20:02)
[2018-09-11] MEDS: risperiDONE 0.5 MG TAB PO SCH (20:03)
[2018-09-11] MEDS: SODIUM CHLORIDE 0.9% 1,000 ML IV SCH (20:11)
[2018-09-12 08:07] VITALS: RESP 18
[2018-09-12] MEDS: MEMANTINE 10 MG TAB PO SCH (09:08)
[2018-09-12] MEDS: METOPROLOL TARTRATE 12.5 MG TAB PO SCH (09:08)
[2018-09-12] MEDS: ASPIRIN 81 MG PO SCH (09:08)
[2018-09-12] MEDS: HEPARIN SODIUM,PORCINE 5,000 UNIT/ML 1 ML VIAL SQ SCH (09:08)
[2018-09-12] MEDS: CIPROFLOXACIN HCL 500 MG TAB PO SCH (09:08)
[2018-09-12] MEDS: LISINOPRIL 5 MG TAB PO SCH (09:08)
[2018-09-12] MEDS: DONEPEZIL 10 MG TAB PO SCH (09:09)
[2018-09-12 12:19] VITALS: BP 133/74; PULSE 58; TEMP 98.4
--- NOTE | 2018-09-12 13:22 | P.DS ---
Providers Date of admission: 09/09/18 19:55 Expected date of discharge: 09/12/18 Attending physician: Margaret Luciano MD Consults: 09/07/18 12:01 Consult Physician Urgent Consulting Provider: Joleen Diaz Consult Reason/Comments: cp Do you want consulting provider notified?: Yes [facility] Course: Discharge diagnosis Sepsis secondary to UTI Urinary tract infection due to Pseudomonas and Enterococcus faecalis Chest pain, rule out acute coronary syndrome Elevated BUN Dementia Hypertension Hyperlipidemia Hospital course 83-year-old male with PMH of dementia, hypertension, hyperlipidemia with a chronic indwelling Ruvalcaba catheter presents to the ED for chest pain and was admitted to rule out ACS and was found to have sepsis secondary to a urinary tract infection. After presenting with a fever and leukocytosis of 15.4, and cultures were checked he was started on empiric IV antibiotics with Rocephin, urine cultures grew Enterococcus faecalis and pseudomonas aeruginosa and his antibiotic regimen was de-escalated to ciprofloxacin 500 mg PO BID. Blood cultures were negative, influenza was negative, chest x-ray only showed b orderline cardiomegaly Acute coronary syndrome was ruled out as his troponin were negative 3, EKG showed sinus mechanism with an acute suggestive of ischemia. Echocardiogram showed a preserved LVEF of 55-60%, the patient was continued on routine chest pain orders with Nitrostat sharla with telemetry monitoring, patient was seen by cardiology recommended no further evaluation. Both treatment the patient's leukocytosis and fever resolved. He was subsequently discharged to [facility] in stable condition with continuing antibiotics for the next 2 days. This discharge process took approximately 35 minutes. Focused exam Cardiovascular: Regular rate and rhythm no murmurs or gallops : Indwelling Ruvalcaba catheter with normal urine output Patient Condition at Discharge: Good Plan - Discharge Summary Discharge Rx Participant: No New Discharge Prescriptions: New Ciprofloxacin HCl [Cipro] 500 mg PO BID #4 tab Metoprolol Tartrate [Lopressor] 12.5 mg PO BID #60 tab Continue Multivit-Min/FA/Lycopen/Lutein [Centrum Silver Tablet] 1 tab PO DAILY Calcium Carbonate/Vitamin D3 [Caltrate 600 Plus D3 Tablet] 1 tab PO DAILY Atorvastatin [Lipitor] 20 mg PO HS Cyanocobalamin (Vitamin B-12) [Vitamin B-12] 1,000 mcg PO DAILY Aspirin [Adult Low Dose Aspirin EC] 81 mg PO DAILY risperiDONE 0.5 mg PO HS Lisinopril [Prinivil] 5 mg PO DAILY Donepezil HCl [Aricept] 10 mg PO DAILY Memantine HCl [Namenda Xr] 28 mg PO DAILY Discharge Medication List Aspirin [Adult Low Dose Aspirin EC] 81 mg PO DAILY 09/07/18 [History] Atorvastatin [Lipitor] 20 mg PO HS 09/07/18 [History] Calcium Carbonate/Vitamin D3 [Caltrate 600 Plus D3 Tablet] 1 tab PO DAILY 09/07/18 [History] Cyanocobalamin (Vitamin B-12) [Vitamin B-12] 1,000 mcg PO DAILY 09/07/18 [History] Donepezil HCl [Aricept] 10 mg PO DAILY 09/07/18 [History] Lisinopril [Prinivil] 5 mg PO DAILY 09/07/18 [History] Memantine HCl [Namenda Xr] 28 mg PO DAILY 09/07/18 [History] Multivit-Min/FA/Lycopen/Lutein [Centrum Silver Tablet] 1 tab PO DAILY 09/07/18 [History] risperiDONE 0.5 mg PO HS 09/07/18 [History] Ciprofloxacin HCl [Cipro] 500 mg PO BID #4 tab 09/12/18 [Rx] Metoprolol Tartrate [Lopressor] 12.5 mg PO BID #60 tab 09/12/18 [Rx] Follow up Appointment(s)/Referral(s): Joleen Diaz MD [STAFF PHYSICIAN] - 10/02/18 2:30 pm (follow up with Dr. RODRIGUEZ Diaz regarding hospital admission.) Sean Belle MD [Primary Care Provider] - 1-2 days Patient Instructions/Handouts: Chest Pain (DC) Activity/Diet/Wound Care/Special Instructions: [facility] - [phone] pt to resume heart healthy diet pt was admitted to hospital with chronic ruvalcaba for BPH, ruvalcaba was placed 09/07/18 at [facility] pt is able to ambulate as tolerated with stand by assistane.
--- NOTE | 2018-09-13 10:04 | CDI ---
Documentation Clarification Form Date: 09/13/2018 10:03:00 AM From: Jacquelyn Yates Phone: If questions call Mouna Francis @ [phone], Hours-8:30 am & 5 pm Georgiana Garces Admit Date: 09/09/2018 7:55:00 PM Patient Name: Haim Craft Visit Number: [id number] Discharge Date: 09/12/2018 3:10:00 PM ATTENTION: The Clinical Documentation Specialists (CDI) and [facility] Coding Staff appreciate your assistance in clarifying documentation. Please respond to the clarification below the line at the bottom and electronically sign. The CDI & [facility] Coding staff will review the response and follow-up if needed. Please note: Queries are made part of the Legal Health Record. If you have any questions, please contact the author of this message via ITS. Dr. Esteban Bray A diagnosis of UTI has been documented in the H&P & DS. History/Risk Factors: sepsis, dementia Per documentation in the HP & DS that this patient was admitted with an indwelling Henderson catheter. Clinical Indicators: T-101.8 Urinalysis: leukocyte esterase-large, RBC-113, WBC >182 Urine culture: Pseudomonas and Enterococcus faecalis Lab results: WBC-15.4, Neutrophils-12.9 Treatment: IV Rocephin & IV fluids In your professional opinion, can you please clarify the etiology of the UTI, if known? Unable to determine MTDD
== END 2018-09-12 15:10 | DRG 872 ==
LOC: EC 09:43 → 1SOBS 12:01 → OBSVTOIN 09-09 19:55
PROVIDERS: ADMIT Family Medicine; ATTEND Family Medicine
DX: A41.52 Sepsis due to Pseudomonas (principal); N39.0 Urinary tract infection, site not specified; A41.81 Sepsis due to Enterococcus; E86.0 Dehydration; F03.90 Unspecified dementia, unspecified severity, without behavioral disturbance, psychotic disturbance, mood disturbance, and anxiety; R07.89 Other chest pain; I11.9 Hypertensive heart disease without heart failure; E78.5 Hyperlipidemia, unspecified; I25.10 Atherosclerotic heart disease of native coronary artery without angina pectoris; N42.9 Disorder of prostate, unspecified; Z79.82 Long term (current) use of aspirin; Z79.899 Other long term (current) drug therapy; Z95.5 Presence of coronary angioplasty implant and graft
CPT/HCPCS: 36415; 71046; 80048; 80053; 80061; 81001; 82550; 83735; 84484; 85025; 85027; 85610; 85730; 87040; 87077; 87086; 87186; 87502; 93005; 93306; 99285